=== PATIENT | male | born 1945 | race Caucasian/White ===

== ENCOUNTER → 2017-10-11 09:08 | Outpatient (CLI) | payer MEDICARE, MEDICAID, SELFPAY ==
[2017-10-11 11:53] LABS: Abs Immature Grans 0.04 k/cumm (0.0-0.09); Absolute Basophil Count 0.08 k/cumm (0.0-0.2); Absolute Eosinophil Count 0.19 k/cumm (0.0-0.7); Absolute Lymphocyte Count 3.23 k/cumm (1.2-3.4); Absolute Monocyte Count 0.65 k/cumm (0.11-0.7); Absolute Neutrophil Count 5.42 k/cumm (1.2-6.7); Basophils % 0.8; HGB 14.3 g/dL (13.5-17.5); Immature Grans % 0.4; Lymphocytes % 33.6; Mean Corp. HGB Concentration 33.3 g/dL (32.0-36.0); Mean Corpuscular Hemoglobin 28.8 pg (27.0-33.0); Mean Corpuscular Volume 86.5 fL (80-95); Mean Platelet Volume 10.4 fL (8.0-11.0); Monocytes % 6.8; Neutrophils % 56.4; Platelet Count 306 x1000/uL (130-400); RBC 4.97 m/cumm (4.50-6.00); RBC Distribution Width 13.9 % (11.8-14.1); White Blood Cell Count 9.61 k/cumm (4.4-10.8)
[2017-10-11 12:03] LABS: ALT 32 U/L (12-78); AST 19 U/L (15-37); Alkaline Phosphatase 52 U/L (46-116); Anion Gap 11.8 mmol/L (3-11); BUN 15 mg/dL (7-18); Bilirubin, Total 0.8 mg/dL (0.2-1.0); CO2 23.2 mmol/L (21.0-32.0); Calcium 9.4 mg/dL (8.5-10.1); Chloride 104 mmol/L (98-107); Estimated GFR 59.51 (mL/min/1.73m2); Glucose 142 mg/dL (70-100); Potassium 4.5 mmol/L (3.5-5.1); Sodium 139 mmol/L (136-145); Total Protein 7.7 g/dL (6.4-8.2)
[2017-10-11 14:30] LABS: Hemoglobin A1C 6.7 % (4.5-6.2)
== END ==
PROVIDERS: PCP Internal Medicine; Visit Provider Internal Medicine
DX: E11.9 Type 2 diabetes mellitus without complications (principal); I10 Essential (primary) hypertension; D64.9 Anemia, unspecified
CPT/HCPCS: 36415; 80053; 83036; 85025

== ENCOUNTER 2018-04-29 01:37 | Outpatient (CLI) | payer MEDICARE, MEDICAID, SELFPAY ==
[2018-04-29 11:39] LABS: Hemoglobin A1C 6.2 % (4.5-6.2)
== END 2018-04-29 01:57 ==
PROVIDERS: PCP Internal Medicine; Visit Provider Internal Medicine
DX: E11.9 Type 2 diabetes mellitus without complications (principal)
CPT/HCPCS: 36415; 83036

== ENCOUNTER 2018-12-26 09:08 | Outpatient (CLI) | payer MEDICARE, MEDICAID, SELFPAY ==
[2018-12-26 11:22] LABS: ALT 24 U/L (16-63); AST 13 U/L (15-37); Albumin 4.1 g/dL (3.4-5.0); Alkaline Phosphatase 59 U/L (46-116); Anion Gap 10.8 mmol/L (3-11); BUN 14 mg/dL (7-18); Bilirubin, Total 0.8 mg/dL (0.2-1.0); CO2 26.2 mmol/L (21.0-32.0); CREATININE 1.26 mg/dL (0.70-1.30); Calcium 8.3 mg/dL (8.5-10.1); Chloride 102 mmol/L (98-107); Glucose 151 mg/dL (70-100); Potassium 4.7 mmol/L (3.5-5.1); Sodium 139 mmol/L (136-145)
[2018-12-26 11:27] LABS: Hemoglobin A1C 6.2 % (4.5-6.2)
[2018-12-26 14:05] LABS: Vitamin D 25 Total 17.8 ng/ml (30-100)
== END 2018-12-26 09:28 ==
PROVIDERS: PCP Internal Medicine; Visit Provider Internal Medicine
DX: E11.9 Type 2 diabetes mellitus without complications (principal); E83.51 Hypocalcemia
CPT/HCPCS: 36415; 80053; 82306; 83036

== ENCOUNTER 2021-03-11 17:44 | Outpatient (REF) | payer MEDICARE, MEDICAID, SELFPAY ==
[2021-03-12 11:41] LABS: COVID-19 RT-PCR UVMMC Result Negative (Negative)
== END 2021-03-11 17:45 | disposition home or self-care (01) ==
LOC: LBN 17:44
PROVIDERS: PCP Nurse Practitioner Family; Visit Provider Nurse Practitioner Family
DX: Z20.822 Contact with and (suspected) exposure to COVID-19 (principal); R09.81 Nasal congestion
CPT/HCPCS: U0003; U0005

== ENCOUNTER → 2021-06-25 08:00 | Outpatient (BNVA) | payer MEDICARE, MEDICAID, SELFPAY | PROVIDERS: PCP Nurse Practitioner Family; Referring Provider Nurse Practitioner Family; Visit Provider Psychiatry & Neurology Neurology | DX: G20 Parkinson's disease (principal) | CPT/HCPCS: 99204 ==

== ENCOUNTER → 2021-07-21 02:18 | Outpatient (CLI) | payer MEDICARE, MEDICAID, SELFPAY ==
--- NOTE | 2021-07-21 09:45 | DI.CT_ITS ---
Exam(s) CT HEAD WO EXAM: CT HEAD WO CLINICAL HISTORY: Parkinsons with NPH features, G20. TECHNIQUE: Imaging Protocol: Axial computed tomography images with coronal and sagittal reformatted images were created and reviewed COMPARISON: No exams were available for comparison FINDINGS: Ventricles and Extra axial spaces: Normal in size and morphology for the patient's age and degree of atrophy.. Hemorrhage: None. Cerebral parenchyma: [id number] atrophy. White matter changes consistent with small vessel d isease. Area of encephalomalacia high left parietal lobe consistent with old infarct. No evidence o f acute infarct. Midline shift: None. Brainstem/Cerebellum: Normal. Calvarium: Normal. Visualized Paranasal sinuses/Mastoids: Clear. 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 No acute abnormality. RADIATION DOSE DELIVERED: 742.2mGy.cm Total DLP 742.2mGy.cm Total DLP DATA REPOSITORY: All CT scans at this facility are submitted to the National Radiology Data Registry (NRDR) Dose Index Registry (DIR) with the [employer] [place] [employer] [employer] (ACR). RADIATION OPTIMIZATION: All CT scans at this facility use at least one of these dose optimization te chniques: automated exposure control; mA and/or kV adjustment per patient size (includes targeted exa ms where dose is matched to clinical indication); or iterative reconstruction.
== END ==
PROVIDERS: PCP Nurse Practitioner Family; Visit Provider Psychiatry & Neurology Neurology
DX: G20 Parkinson's disease (principal); I67.82 Cerebral ischemia; Z86.73 Personal history of transient ischemic attack (TIA), and cerebral infarction without residual deficits
CPT/HCPCS: 70450

== ENCOUNTER → 2021-08-13 12:21 | Outpatient (BNVA) | payer MEDICARE, MEDICAID, SELFPAY | PROVIDERS: PCP Nurse Practitioner Family; Referring Provider Nurse Practitioner Family; Visit Provider Psychiatry & Neurology Neurology | DX: Z86.73 Personal history of transient ischemic attack (TIA), and cerebral infarction without residual deficits (principal); G20 Parkinson's disease | CPT/HCPCS: 99213 ==

== ENCOUNTER → 2021-12-30 08:30 | Outpatient (BNVA) | payer MEDICARE, MEDICAID, SELFPAY | PROVIDERS: PCP Nurse Practitioner Family; Referring Provider Nurse Practitioner Family; Visit Provider Psychiatry & Neurology Neurology | DX: Z86.73 Personal history of transient ischemic attack (TIA), and cerebral infarction without residual deficits (principal); I10 Essential (primary) hypertension; E11.9 Type 2 diabetes mellitus without complications; G20 Parkinson's disease | CPT/HCPCS: 99213 ==

== ENCOUNTER 2022-04-20 02:50 | Outpatient (CLI) | payer MEDICARE, MEDICAID, SELFPAY ==
[2022-04-20 12:40] LABS: Calculated LDL 39 mg/dL (<100); Cholesterol 108 mg/dL (<200); Estimated GFR 77.52 (mL/min/1.73m2); HDL Cholesterol 49 mg/dL (40-60); Potassium 4.4 mmol/L (3.5-5.1); Triglyceride 100 mg/dL (<150)
[2022-04-20 12:45] LABS: Hemoglobin A1C 5.6 % (<5.7)
[2022-04-20 18:51] LABS: PSA, Screening 0.4 ng/mL (<=6.5)
== END 2022-04-20 02:51 | disposition home or self-care (01) ==
LOC: LOS 02:50
PROVIDERS: PCP Nurse Practitioner Family; Visit Provider Nurse Practitioner Family
DX: N40.0 Benign prostatic hyperplasia without lower urinary tract symptoms (principal); E11.9 Type 2 diabetes mellitus without complications; I10 Essential (primary) hypertension; E78.5 Hyperlipidemia, unspecified; Z12.5 Encounter for screening for malignant neoplasm of prostate
CPT/HCPCS: 36415; 80061; 84153; 82565; 83036; 84132

== ENCOUNTER → 2022-11-26 14:06 | Outpatient (BNVA) | payer MEDICARE, MEDICAID, SELFPAY | PROVIDERS: PCP Nurse Practitioner Family; Referring Provider Nurse Practitioner Family; Visit Provider Psychiatry & Neurology Neurology | DX: G20 Parkinson's disease (principal); Z86.73 Personal history of transient ischemic attack (TIA), and cerebral infarction without residual deficits; I10 Essential (primary) hypertension; E11.9 Type 2 diabetes mellitus without complications | CPT/HCPCS: 99213 ==

== ENCOUNTER → 2023-05-27 07:59 | Outpatient (BNVA) | payer MEDICARE, MEDICAID, SELFPAY | PROVIDERS: PCP Nurse Practitioner Family; Referring Provider Nurse Practitioner Family; Visit Provider Psychiatry & Neurology Neurology | DX: G20.C Parkinsonism, unspecified (principal); I67.9 Cerebrovascular disease, unspecified | CPT/HCPCS: 99213 ==

== ENCOUNTER → 2023-08-26 09:49 | Outpatient (BNVA) | payer MEDICARE, MEDICAID, SELFPAY | PROVIDERS: PCP Nurse Practitioner Family; Referring Provider Nurse Practitioner Family; Visit Provider Psychiatry & Neurology Neurology | DX: G20.C Parkinsonism, unspecified (principal); I67.9 Cerebrovascular disease, unspecified; F10.27 Alcohol dependence with alcohol-induced persisting dementia | CPT/HCPCS: 99214 ==

== ENCOUNTER → 2023-11-25 09:04 | Outpatient (BNVA) | payer MEDICARE, MEDICAID, SELFPAY | PROVIDERS: PCP Nurse Practitioner Family; Visit Provider Psychiatry & Neurology Neurology | DX: G20.C Parkinsonism, unspecified (principal); I67.9 Cerebrovascular disease, unspecified; F10.27 Alcohol dependence with alcohol-induced persisting dementia | CPT/HCPCS: 99214 ==

== ENCOUNTER 2024-09-14 21:23 | Outpatient (REF) | payer MEDICARE, MEDICAID, SELFPAY ==
[2024-09-14 16:44] LABS: Abs Immature Grans 0.32 10^3/uL (0.0-0.06); HCT 38.9 % (40.0-50.0); HGB 12.6 g/dL (13.5-17.5); Immature Grans % 3.3 %; MCH 29.3 pg (27.0-33.0); MCHC 32.4 % (32.0-36.0); MCV 91 fL (80-95); MPV 9.6 fL (8.0-11.0); Platelet Count 510 10^3/uL (130-400); RBC 4.30 10^6/uL (4.36-5.78); RDW 13.6 % (11.8-14.1); RDW-SD 45.1 fL; WBC 9.80 10^3/uL (4.4-10.8)
[2024-09-14 17:35] LABS: ALT 20 U/L (16-63); AST 11 U/L (15-37); Albumin 3.1 g/dL (3.4-5.0); Alkaline Phosphatase 81 U/L (46-116); Anion Gap 8.0 mmol/L (3-11); BUN 14 mg/dL (7-18); Bilirubin, Total 0.5 mg/dL (0.2-1.0); CO2 29.0 mmol/L (21.0-32.0); Calcium 9.1 mg/dL (8.5-10.1); Calculated LDL 44 mg/dL (<100); Chloride 101 mmol/L (98-107); Cholesterol 104 mg/dL (<200); Estimated GFR 86.88 (mL/min/1.73m2); Glucose 196 mg/dL (74-106); HDL Cholesterol 46 mg/dL (>or=40); Potassium 4.0 mmol/L (3.5-5.1); Sodium 138 mmol/L (136-145); TSH (W/Ref FT4) 0.61 uIU/mL (0.36-3.74); Total Protein 7.2 g/dL (6.4-8.2); Triglyceride 74 mg/dL (<150)
== END 2024-09-14 21:24 | disposition home or self-care (01) ==
LOC: LBN 21:23
PROVIDERS: PCP Nurse Practitioner Family; Visit Provider Nurse Practitioner Adult Health
DX: E11.9 Type 2 diabetes mellitus without complications (principal); I11.9 Hypertensive heart disease without heart failure
CPT/HCPCS: 80053; 80061; 84443; 85025

== ENCOUNTER 2024-09-25 02:35 | Outpatient (CLI) | payer MEDICARE, MEDICAID, SELFPAY ==
--- NOTE | 2024-09-25 10:28 | DI.RAD_ITS ---
Exam(s) XR CHEST 2V PA LATERAL EXAM: XR CHEST 2V PA LATERAL CLINICAL HISTORY: COUGH,R05. TECHNIQUE: 2D digital imaging was performed. COMPARISON: No exams were available for comparison FINDINGS: 2 views: Heart size is normal. The mediastinum is not widened. Lungs are clear. No infiltrates nor pleural effusions. IMPRESSION: No acute pulmonary findings. DATA REPOSITORY: RADIATION DOSE DELIVERED:
== END 2024-09-25 02:55 ==
LOC: DI 02:36
PROVIDERS: PCP Nurse Practitioner Family; Visit Provider Nurse Practitioner Gerontology
DX: R05.9 Cough, unspecified (principal)
CPT/HCPCS: 71046

== ENCOUNTER 2024-10-12 11:10 | Outpatient (REF) | payer MEDICARE, MEDICAID, SELFPAY ==
[2024-10-12 17:56] LABS: Hemoglobin A1C 5.6 % (<5.7)
== END 2024-10-12 11:11 | disposition home or self-care (01) ==
LOC: LBN 11:10
PROVIDERS: PCP Nurse Practitioner Family; Visit Provider Family Medicine
DX: E11.9 Type 2 diabetes mellitus without complications (principal)
CPT/HCPCS: 83036

== ENCOUNTER 2024-11-06 07:36 | Outpatient (REF) | payer MEDICARE, MEDICAID, SELFPAY ==
[2024-11-06 22:00] LABS: Anion Gap 9.5 mmol/L (3-11); BUN 17 mg/dL (7-18); CO2 28.5 mmol/L (21.0-32.0); Calcium 9.5 mg/dL (8.5-10.1); Chloride 103 mmol/L (98-107); Estimated GFR 86.88 (mL/min/1.73m2); Glucose 86 mg/dL (74-106); Potassium 4.2 mmol/L (3.5-5.1); Sodium 141 mmol/L (136-145)
== END 2024-11-06 07:37 | disposition home or self-care (01) ==
LOC: LBN 07:36
PROVIDERS: PCP Nurse Practitioner Family; Visit Provider Nurse Practitioner Adult Health
DX: I25.119 Atherosclerotic heart disease of native coronary artery with unspecified angina pectoris (principal)
CPT/HCPCS: 80048

== ENCOUNTER 2024-12-20 04:41 | Emergency (ER) | payer MEDICARE, MEDICAID, SELFPAY ==
--- NOTE | 2024-12-20 04:33 | W.ED.GENAD ---
Discharge Plan Disposition Patient Disposition: Custodial Facility(SNF) Condition: Good Discharge Details Clinical Impression: Fall at alf, Forehead laceration Primary Care Provider: Michael Escobar ED Provider: Noam Price [place] Meds and New Rx's Prescriptions: Continued carbidopa-levodopa [Sinemet] 25-100 mg tablet 1.5 tab PO QID Qty: 540 3RF Rx Instructions: Take around 8am, noon, 4pm, and 8pm nitroglycerin [Nitrostat] 0.4 mg tablet, sublingual 0.4 mg Sublingual PRN MDD 3 in 3 hours Qty: 25 4RF simvastatin [Zocor] 40 mg tablet 40 mg PO HS Qty: 90 4RF metoprolol succinate 50 mg tablet extended release 24 hr 50 mg PO DAILY Qty: 90 4RF lisinopril 40 mg tablet 40 mg PO DAILY Qty: 90 3RF metformin 850 mg tablet 850 mg PO BID Qty: 180 3RF cholecalciferol (vitamin D3) 50 mcg (2,000 unit) tablet 2,000 unit PO BID Qty: 180 3RF venlafaxine 75 mg tablet extended release 24hr 75 mg PO DAILY aspirin 81 mg capsule 81 mg PO DAILY sorbitol 70 % solution 15 ml PO DAILY PRN Rx Instructions: for 2 days sorbitol 70 % solution 30 ml PO TID PRN acetaminophen 325 mg capsule 650 mg PO Q6H PRN bisacodyl 10 mg suppository 10 mg [place] DAILY PRN mineral oil [Pure and Gentle (mineral oil)] Enema 133 ml [place] DAILY PRN Rx Instructions: discard any unused portion, as needed for promoting stool sennosides [senna] 8.6 mg tablet 34.4 mg PO BID PRN Discharge Instructions Instructions: Laceration Repair With Stitches ED Additional Instructions: You were seen in the ED after a mechanical fall with a laceration to your forehead. This has been sutured and stitches should be removed in 5 to 7 days. Your tetanus was updated. The head CT shows no evidence of intracranial traumatic injury. Return to ED for any severe worsening headache, mental status change, neurologic change, persistent vomiting, increasing pain/redness/drainage from the laceration. HPI General Mode of arrival: EMS. Date/Time Provider Initiated Documentation: 12/20/24 05:05. Limitations to Documentation: no limitations. Information obtained by: patient and RN notes reviewed. HPI Narrative: Patient presents to ED s/p fall at [facility] with laceration to face. Patient was getting up out of his chair and fell. He did not lose consciousness. He sustained a laceration to the forehead. He was able to get up with help and able to bear weight. He denies neck pain. He denies syncope, chest pain, shortness of breath. Has an abrasion on the left knee but denies pain. Related Data Home Medications ?Medication ?Instructions ?Recorded ?Confirmed nitroglycerin 0.4 mg sublingual 0.4 mg sublingual PRN #25 tab-caps 05/27/23 12/20/24 tablet (Nitrostat) simvastatin 40 mg tablet (Zocor) 40 mg PO HS #90 tab-caps 07/21/23 12/20/24 metoprolol succinate 50 mg 50 mg PO DAILY #90 tabs 10/11/23 12/20/24 tablet,extended release 24 hr carbidopa 25 mg-levodopa 100 mg 1.5 tab PO QID #540 tabs 11/25/23 12/20/24 tablet (Sinemet) lisinopril 40 mg tablet 40 mg PO DAILY #90 tabs 12/08/23 12/20/24 metformin 850 mg tablet 850 mg PO BID #180 tabs 12/08/23 12/20/24 cholecalciferol (vitamin D3) 50 2,000 unit PO BID #180 tabs 05/23/24 12/20/24 mcg (2,000 unit) tablet acetaminophen 325 mg capsule 650 mg PO Q6H PRN 12/20/24 12/20/24 aspirin 81 mg capsule 81 mg PO DAILY 12/20/24 12/20/24 bisacodyl 10 mg rectal suppository 10 mg [place] DAILY PRN 12/20/24 12/20/24 mineral oil (Pure and Gentle 133 ml [place] DAILY PRN 12/20/24 12/20/24 (mineral oil) enema) sennosides 8.6 mg tablet (senna) 34.4 mg PO BID PRN 12/20/24 12/20/24 sorbitol 70 % solution 15 ml PO DAILY PRN 12/20/24 12/20/24 sorbitol 70 % solution 30 ml PO TID PRN 12/20/24 12/20/24 venlafaxine 75 mg tablet,extended 75 mg PO DAILY 12/20/24 12/20/24 release 24 hr Previous Rx's ?Medication ?Instructions ?Recorded nitroglycerin 0.4 mg sublingual 0.4 mg sublingual PRN #25 tab-caps 05/27/23 tablet (Nitrostat) simvastatin 40 mg tablet (Zocor) 40 mg PO HS #90 tab-caps 07/21/23 metoprolol succinate 50 mg 50 mg PO DAILY #90 tabs 10/11/23 tablet,extended release 24 hr carbidopa 25 mg-levodopa 100 mg 1.5 tab PO QID #540 tabs 11/25/23 tablet (Sinemet) lisinopril 40 mg tablet 40 mg PO DAILY #90 tabs 12/08/23 metformin 850 mg tablet 850 mg PO BID #180 tabs 12/08/23 cholecalciferol (vitamin D3) 50 2,000 unit PO BID #180 tabs 05/23/24 mcg (2,000 unit) tablet Allergies Allergy/AdvReac Type Severity Reaction Status Date / Time No Known Allergies Allergy Verified 06/22/24 11:00 Exam Narrative Exam Narrative: Const: WDWN elderly male in NAD. VS per triage. HEENT: NC. 3 cm vertical laceration extending from forehead down to bridge of nose, through dermis only, deep structures in tact. No facial bony tenderness. Neck: Supple. Trachea midline. No cervical spine tenderness. Lungs: Normal respiratory effort. Lungs are clear. No chest wall tenderness. Cor: RRR without murmur. Neuro: A+O x 3. Normal speech, mentation. Cranial nerves II - XII grossly intact. No gross motor or sensory deficit. Ext: No C/C/E. Normal ROM and no tenderness or deformity. Procedure Laceration Laceration 1: Date of Procedure: 12/20/24 Time of procedure: 05:07 Provider that performed the procedure: Noam Price Patient Consented: Verbally Site: face Description: linear and clean Depth: simple, single layer Local anesthetic: Lidocaine 1% and with Epi Amount of anesthesia used (mL): 5 Pre-repair:: wound explored, irrigated extensively and deep structures intact Skin layer closed with: nylon Suture size: 6-0 Number of sutures:: 9 Technique: simple, interrupted Medical Decision Making Patient presenting to the ED with mechanical fall. Patient was trying to get up out of his chair who lost his balance falling. He was able to get up with help. Denies any pain when bearing weight. Denies loss of consciousness. Has 3 cm laceration to the forehead. Cervical spine is cleared clinically. Extremities nontender with normal range of motion. Bleeding controlled with lidocaine with epinephrine. Wound irrigated and cleaned. Sutured with 6-0 nylon in simple interrupted fashion with good approximation. Tetanus will need to be updated as his last immunization was 2008. Will obtain CT head. Imaging required at this time, patient denies pain elsewhere, cervical spine nontender, chest wall and pelvis stable. CT head negative for traumatic injury per preliminary radiology read. Patient can be discharged back to F. Sutures out in 5-7 days. Return precautions provided. PFSH All Active Problems (Updated 12/20/24 @ 06:02 by Noam Price MD) Forehead laceration (Acute) Fall at alf (Acute) Dementia associated with alcoholism with behavioral disturbance (Acute) DNR (do not resuscitate) (Acute) Skin lesion (Acute) Cerebrovascular disease (Acute) Parkinson disease (Chronic) Need for home health care (Acute) Knee pain, right (Acute) Hypertension (Chronic) Vitamin D deficiency (Acute) Parkinsonian features (Acute) Lesion of nose (Acute) Herpes zoster (Acute) History of alcoholism (Acute) History of intravascular stent placement (Acute) History of tobacco use (Acute) Status post inguinal hernia repair (Acute) Low back pain without sciatica (Chronic) Refilled his pain medication. See him in 3 months. He will need blood work this fall. Lumbago (Chronic) Kidney stone (Acute) Hyperlipidemia (Acute 08/03/12) Dental caries, unspecified (Acute) Coronary atherosclerosis of [place] coronary vessel (Acute 08/03/12) nstemi 2007 Angiolplasty mid 2 LCX stent to ostial OM2 Jailed LCX BPH without urinary obstruction (Acute) Diabetes mellitus (Chronic 08/03/12) His last 2 A1c's over the last year were in the [place]. We will wait to do one on his next visit. Basal cell carcinoma of [place] (Acute 11/20/14) refused surgery Atherosclerosis of [place] coronary artery of [place] heart with unstable angina pectoris (Acute 08/03/12) nstemi 2007 Angiolplasty mid 2 LCX stent to ostial OM2 Jailed LCX Chronic pain syndrome (Acute 05/30/13) 09/18/11; NARCOTIC CONTRACT 09/07/16; CONTROLLED SUBSTANCE AGREEMENT Surgical History Stent placement (~2007) x 2 Repair of inguinal hernia right Family History Mother Diabetes Essential hypertension Heart disease Social History Smoking/Tobacco Use Status: Former Tobacco Use tobacco type: cigarettes Quit Date: 03/01/09 Second Hand Exposure: Yes Smoking risk assessment performed?: Yes Alcohol Intake: former Drug use: Never Substance use type: does not use Caregiver/Support person: Yes (Home Health Services ) Household members: significant other Housing: alf Communication Needs: None Do you need help understanding health information?: Often Pets and animals: No Sexually active: No Do you think of yourself as: straight/heterosexual Current gender identity: male What is your relationship status?: living with partner How often do you talk on the phone with friends or family?: three or more times per week How often do you get together with friends or relatives?: once per week How often do you attend roman catholic or roman catholic services?: decline to answer Do you belong to any clubs or organized social groups?: no Panel score (0-1 are the most socially isolated patients): 2 What type of physical activity do you participate in: none Frequency: does not exercise Velia/Moravian: None Special velia needs: No Seatbelt use: sometimes Helmet use: No Drive intox or ride w/intox route delivery driver: No Do you feel safe at home: Yes Do you feel safe in your relationship?: Yes
[2024-12-20 04:35] VITALS: BP 182/92; PULSE 72; RESP 16; O2SAT 98
--- NOTE | 2024-12-20 05:00 | DI.CT_ITS ---
Exam(s) CT HEAD WO EXAM: CT HEAD WO CLINICAL HISTORY: fall with head injury. TECHNIQUE: Imaging Protocol: Axial computed tomography images with coronal and sagittal reformatted images were created and reviewed COMPARISON: CT CT HEAD WO from 07/21/2021 FINDINGS: Ventricles and Extra axial spaces: Normal in size and morphology for the patient's age. Hemorrhage: None. Cerebral parenchyma: There are areas of decreased attenuation in the white matter consistent with chronic microvascular ischemic disease. There is an area of encephalomalacia involving the posterior left parietal lobe. There is no acute mass effect. Midline shift: None. Brainstem/Cerebellum: Normal. Calvarium: Normal. Visualized Paranasal sinuses/Mastoids: Clear. Soft Tissues: Unremarkable. IMPRESSION: 1. No acute intracranial process. 2. The preliminary [facility] report was reviewed. RADIATION DOSE DELIVERED: 857.01mGy.cm Total DLP DATA REPOSITORY: All CT scans at this facility are submitted to the National Radiology Data Registry (NRDR) Dose Index Registry (DIR) with the [place] [employer] (ACR). RADIATION OPTIMIZATION: All CT scans at this facility use at least one of these dose optimization techniques: automated exposure control; mA and/or kV adjustment per patient size (includes targeted exams where dose is matched to clinical indication); or iterative reconstruction.
--- NOTE | 2024-12-20 05:58 | DI.[facility]_ITS ---
PROCEDURE INFORMATION: Exam: CT Head Without Contrast Exam date and time: 12/20/2024 5:26 AM Age: 79 years old Clinical indication: Injury or trauma; Blunt trauma (contusions or hematomas); Loss of consciousness unknown; Injury date: 12/20/24; Injury details: Fall with head injury TECHNIQUE: Imaging protocol: Computed tomography of the head without contrast. Radiation optimization: All CT scans at this facility use at least one of these dose optimization techniques: automated exposure control; mA and/or kV adjustment per patient size (includes targeted exams where dose is matched to clinical indication); or iterative reconstruction. COMPARISON: CT HEAD WO 07/21/2021 9:42 AM FINDINGS: Brain: No intracranial hemorrhage appreciated. No significant focal mass effect or significant midline shift. Generalized parenchymal volume loss. Chronic ischemic changes are noted. Left parietal encephalomalacia. Lacunar infarcts in the deep [place] matter. Cerebral ventricles: No disproportionate ventriculomegaly. Paranasal sinuses: No air-fluid levels seen. Mastoid air cells: No mastoid effusion. Bones: No acute cranial vault fracture seen. Soft tissues: No acute findings. Vasculature: Arterial calcifications. IMPRESSION: 1. No intracranial sequelae of trauma appreciated. 2. Nonacute findings as outlined above. Dictated and Authenticated by: Heather Lua MD. Orderin Albert Santacruz MD
[2024-12-20] MEDS: Tetanus & Diphtheria Tox,ADULT 0.5 ML VIAL IM (06:25)
[2024-12-20] MEDS: Lidocaine 1% Pres-Free W/EPI 1/200,000 30 ML VIAL 5 ML IJ (06:26)
== END 2024-12-20 07:07 | disposition skilled nursing facility (03) ==
PROVIDERS: Emergency Provider Emergency Medicine; PCP Nurse Practitioner Family
DX: S01.81XA Laceration without foreign body of other part of head, initial encounter (principal); W19.XXXA Unspecified fall, initial encounter; Y92.129 Unspecified place in nursing home as the place of occurrence of the external cause
CPT/HCPCS: 12013; 90714; 99284; 70450; 99283; J2004

== ENCOUNTER 2025-01-18 12:39 | Outpatient (REF) | payer MEDICARE, MEDICAID, SELFPAY ==
[2025-01-18 13:07] LABS: Glucose Negative (Negative)
[2025-01-18 13:14] LABS: WBC 0-2 HPF (0-5)
[2025-01-18 13:27] LABS: COVID-19 PCR Negative (Negative); RSV PCR Negative (Negative)
== END 2025-01-18 12:40 | disposition home or self-care (01) ==
LOC: LBN 12:39
PROVIDERS: PCP Nurse Practitioner Family; Visit Provider Nurse Practitioner Adult Health
DX: R05.9 Cough, unspecified (principal); N39.0 Urinary tract infection, site not specified
CPT/HCPCS: 87637; 81003; 81015; 87086